=== PATIENT | male | born 1990 | race African-American/Black ===

== ENCOUNTER 2023-11-04 05:22 | Emergency (ER) | payer MEDICAID ==
[~2023-11-04] VITALS: Ht 175.3 cm; Wt 82.0 kg
[2023-11-04 05:25] VITALS: BP 160/89; PULSE 102; RESP 18; TEMP 98.4; O2SAT 99
[2023-11-04] MEDS: TETANUS, DIPHTHERIA, PERTUSSIS VAC/PF 0.5ML (>10YR OLD) IM ONE (06:00)
== END 2023-11-04 07:18 | disposition home or self-care (01) ==
LOC: ER 05:22
DX: S01.112A Laceration without foreign body of left eyelid and periocular area, initial encounter (principal); R51.9 Headache, unspecified; Y08.89XA Assault by other specified means, initial encounter; Y93.89 Activity, other specified; Y92.89 Other specified places as the place of occurrence of the external cause; Y99.8 Other external cause status
CPT/HCPCS: 12013; 70486; 90471; 90715; 99285

== ENCOUNTER 2023-11-11 09:48 | Emergency (ER) | payer MEDICAID ==
[~2023-11-11] VITALS: Ht 177.8 cm; Wt 90.0 kg
[2023-11-11 09:55] VITALS: BP 148/89; PULSE 89; RESP 18; TEMP 98.6; O2SAT 98
== END 2023-11-11 10:38 | disposition home or self-care (01) ==
LOC: ER 09:48
DX: Z48.02 Encounter for removal of sutures (principal)
CPT/HCPCS: 99281; Z7610 ×2